=== PATIENT | female | born 1975 | race Caucasian/White ===

== ENCOUNTER → 2019-05-08 | Outpatient (CLI) | payer OTHER ==
--- NOTE | 2019-05-08 11:38 | REP ---
Clinical: Trauma. Technique: Frontal view of the chest with multiple (four) views of the left hemithorax. Findings: Frontal view of the chest demonstrates no acute cardiopulmonary process. Multiple views of the left hemithorax demonstrates no obvious acute rib fracture or pathology. Impression: Normal left rib series Electronically Signed by Jim Mathew MD 05/08/2019 11:29 A
== END ==
LOC: M WUC 11:11
PROVIDERS: ATTEND Nurse Practitioner Family
DX: S23.41XA Sprain of ribs, initial encounter (principal); W10.8XXA Fall (on) (from) other stairs and steps, initial encounter; Y92.9 Unspecified place or not applicable

== ENCOUNTER 2019-11-09 17:43 | Emergency (ER) | payer OTHER ==
[2019-11-09] MEDS ORDERED: EPINEPHrine INJ 1 MG/ML 1ML AMP IM STA (17:49)
[2019-11-09] MEDS ORDERED: diphenhydrAMINE 50MG/ML VIAL (J1200) IV ONE (18:00)
[2019-11-09] MEDS ORDERED: NS 1,000 ML IV ONE (18:00)
[2019-11-09] MEDS ORDERED: FAMOTIDINE INJ 20MG/2ML VIAL (S0028 PER 1) IVP ONE (18:00)
[2019-11-09] MEDS ORDERED: methylPREDNISolone INJ 125 MG/2 ML VIAL (J2930) IV ONE (18:00)
[2019-11-09 18:39] LABS: HEMATOCRIT 44.9 % (36.0-47.0); HEMOGLOBIN 15.3 g/dl (12.0-15.5); MEAN CORPUSCULAR HEMOGLOBIN 30.5 pg (27.0-33.0); MEAN CORPUSCULAR HGB CONC 34.1 g/dl (32.0-36.5); MEAN CORPUSCULAR VOLUME 89.4 fl (80.0-96.0); PLATELET COUNT, AUTOMATED 264 10^3/uL (150-450); RED BLOOD COUNT 5.02 10^6/uL (4.00-5.40); WHITE BLOOD COUNT 9.4 10^3/uL (4.0-10.0)
[2019-11-09 19:05] LABS: ALBUMIN 3.7 GM/DL (3.2-5.2); ALT/SGPT 20 U/L (12-78); BILIRUBIN,DIRECT 0.1 MG/DL (0.0-0.2); BILIRUBIN,TOTAL 0.3 MG/DL (0.2-1.0); BLOOD UREA NITROGEN 5 MG/DL (7-18); CALCIUM LEVEL 8.8 MG/DL (8.5-10.1); CARBON DIOXIDE LEVEL 21 MEQ/L (21-32); CHLORIDE LEVEL 107 MEQ/L (98-107); COMPLEMENT C4 35 MG/DL (10-40); CREATININE FOR GFR 0.84 MG/DL (0.55-1.30); GLOMERULAR FILTRATION RATE > 60.0 (>58); GLUCOSE, FASTING 170 MG/DL (70-100); POTASSIUM SERUM 3.1 MEQ/L (3.5-5.1); SODIUM LEVEL 138 MEQ/L (136-145); TOTAL PROTEIN 7.1 GM/DL (6.4-8.2)
[2019-11-09] MEDS ORDERED: AMOX875T2 PO (19:09)
[2019-11-09 19:30] LABS: ERYTHROCYTE SEDIMENTATION RATE 10 mm/hr (0-20)
[2019-11-09 19:45] LABS: ATYPICAL LYMPH 19 % (0-5); EOSINOPHILS 1 % (0-3); LYMPHOCYTES 38 % (16-44); NEUTROPHILS 42 % (28-66); PLATELET ESTIMATE NORMAL (NORMAL)
[2019-11-09] MEDS ORDERED: ONDANSETRON 4 MG ORAL DISINTEGRATING TAB PO ONE (19:45)
[2019-11-09] MEDS ORDERED: PRED10TA2 PO (21:55)
[2019-11-09] MEDS ORDERED: PEPC1TAB5 PO (21:55)
[2019-11-09] MEDS ORDERED: BENA25CA4 PO (21:55)
[2019-11-09] MEDS ORDERED: POTASSIUM CHLORIDE 10 MEQ SR TABLET PO ONE (22:00)
[2019-11-09 22:05] VITALS: BP 109/70
--- NOTE | 2019-11-09 23:09 | REP ---
CHEST, SINGLE VIEW: There is no evidence of acute infiltrate. No pleural effusion is seen. The heart is normal in size. The mediastinal silhouette is unremarkable. The visualized osseous structures are intact. IMPRESSION: No acute pulmonary disease. Electronically Signed by Jack Oh MD 11/10/2019 09:32 A
[2019-11-14 00:06] LABS: TRYPTASE 23.2 ug/L (2.2-13.2)
== END 2019-11-09 22:19 | disposition home or self-care (01) ==
LOC: M ED 17:43
DX: R06.02 Shortness of breath (principal); R20.2 Paresthesia of skin; R21 Rash and other nonspecific skin eruption; I95.9 Hypotension, unspecified; F41.9 Anxiety disorder, unspecified; T88.6XXA Anaphylactic reaction due to adverse effect of correct drug or medicament properly administered, initial encounter; T36.0X5A Adverse effect of penicillins, initial encounter; K04.7 Periapical abscess without sinus; F17.210 Nicotine dependence, cigarettes, uncomplicated; Z88.0 Allergy status to penicillin
CPT/HCPCS: 71045; 80048; 80076; 83519; 85025; 85280; 85652; 86140; 86160; 86161; 93041; 94760; 96361; 96372; 96374; 96375; 99285; J0171; J1200; J2930; Q0162

== ENCOUNTER → 2025-05-27 | Outpatient (CLI) | payer OTHER ==
[~2025-05-27] MED LIST: AMOX875T2 PO; BENA25CA4 PO; PEPC1TAB5 PO; PRED10TA2 PO
== END ==
LOC: M RAD 16:26
PROVIDERS: ATTEND Physician Assistant
DX: S62.501A Fracture of unspecified phalanx of right thumb, initial encounter for closed fracture (principal); W23.1XXA Caught, crushed, jammed, or pinched between stationary objects, initial encounter; Y93.9 Activity, unspecified; Y92.9 Unspecified place or not applicable; Y99.9 Unspecified external cause status

== ENCOUNTER 2025-06-23 01:07 | Emergency (ER) | payer OTHER ==
[~2025-06-23] VITALS: Ht 160 cm; Wt 61.5 kg
[2025-06-23] MEDS ORDERED: CLEO300C2 PO (02:04)
[2025-06-23] MEDS ORDERED: KETO-204 PO (02:04)
[2025-06-23] MEDS: KETOROLAC 60 MG/2 ML VIAL IM ONE (02:10)
[2025-06-23] MEDS: CLINDAMYCIN 150 MG CAPSULE PO ONE (02:10)
[2025-06-23 02:35] VITALS: BP 134/81; TEMP 96.7; O2SAT 98
[2025-06-24] MEDS ORDERED: HYDR-3713 PO (17:11)
[2025-06-24] MEDS ORDERED: METR-265 PO (17:11)
[2025-06-24] MEDS ORDERED: LEVO1TAB40 PO (17:11)
== END 2025-06-23 02:37 | disposition home or self-care (01) ==
LOC: M ED 01:07
DX: K02.9 Dental caries, unspecified (principal); Z88.1 Allergy status to other antibiotic agents; Z79.899 Other long term (current) drug therapy; F17.200 Nicotine dependence, unspecified, uncomplicated
CPT/HCPCS: 96372; 99283; J1885

== ENCOUNTER 2025-06-24 14:12 | Emergency (ER) | payer OTHER ==
[~2025-06-24] VITALS: Ht 160 cm; Wt 63.3 kg
[~2025-06-24 14:12] MED LIST changes: +CLEO300C2 PO; +KETO-204 PO
[2025-06-24 14:14] VITALS: TEMP 96.7
[2025-06-24 14:51] LABS: BASO # 0.0 10^3/uL (0.0-0.2); BASO % 0.3 % (0.0-1.0); EOS # 0.1 10^3/uL (0.0-0.5); EOS % 0.7 % (0.0-3.0); LYMPH # 2.3 10^3/uL (1.5-5.0); LYMPH % 24.0 % (24.0-44.0); MONO # 0.6 10^3/uL (0.0-0.8); MONO % 5.9 % (2.0-8.0); NEUTROPHILS # 6.5 10^3/uL (1.5-8.5); NEUTROPHILS % 68.9 % (36.0-66.0); PLATELET COUNT, AUTOMATED 197 10^3/uL (150-450)
[2025-06-24 15:16] LABS: C REACTIVE PROTEIN QUANTITATIV < 0.50 MG/DL (<1.0); CALCIUM LEVEL 8.5 MG/DL (8.5-10.1); CARBON DIOXIDE LEVEL 25 MMOL/L (20-31); CHLORIDE LEVEL 95 MMOL/L (98-107); CREATININE FOR GFR 0.61 MG/DL (0.55-1.30); GLOMERULAR FILTRATION RATE > 90.0 (>51); POTASSIUM SERUM 3.7 MMOL/L (3.5-5.1); SODIUM LEVEL 126 MMOL/L (136-145)
[2025-06-24] MEDS: ONDANSETRON 4MG/2ML VIAL IV ONE (16:50)
[2025-06-24] MEDS: NORCO 5/325MG TABLET (HOME DOSE PACK) PO ONE (16:51)
[2025-06-24] MEDS ORDERED: METR-265 PO (17:11)
[2025-06-24] MEDS ORDERED: LEVO1TAB40 PO (17:11)
[2025-06-24] MEDS ORDERED: HYDR-3713 PO (17:11)
[2025-06-24 17:19] VITALS: BP 141/91; O2SAT 99
== END 2025-06-24 17:20 | disposition home or self-care (01) ==
LOC: M ED 14:12
DX: K02.9 Dental caries, unspecified (principal); F17.200 Nicotine dependence, unspecified, uncomplicated
CPT/HCPCS: 80048; 85025; 85652; 86140; 96374; 99284; J2405